=== PATIENT | male | born 1990 | race Caucasian/White ===

== ENCOUNTER 2022-08-28 13:34 | Emergency (ER) | payer MEDICAID ==
[~2022-08-28] VITALS: Ht 167.6 cm; Wt 81.8 kg
[2022-08-28 15:30] VITALS: BP 111/70
[2022-08-28] MEDS ORDERED: acetaminophen 325mg tablet PO ONE (15:50)
[2022-08-28] MEDS ORDERED: ondansetron 4mg rapidly disintigrating tab PO ONE (15:50)
[2022-08-28] MEDS ORDERED: orphenadrine citrate 60mg/2ml inj. IM ONE (15:50)
[2022-08-28] MEDS ORDERED: ketorolac trometh inj. 60 MG/2 ML VIAL IM ONE (15:50)
[2022-08-28] MEDS ORDERED: CYCL-1 PO (15:52)
[2022-08-28] MEDS ORDERED: ONDA8TAB13 PO (15:52)
[2022-08-28] MEDS ORDERED: ACET-1025 PO (15:52)
[2022-08-28] MEDS ORDERED: IBUP-1984 PO (15:52)
== END 2022-08-28 16:21 | disposition home or self-care (01) ==
LOC: ER 13:35
DX: M25.511 Pain in right shoulder (principal); Z79.899 Other long term (current) drug therapy; X50.0XXA Overexertion from strenuous movement or load, initial encounter; Y93.89 Activity, other specified; Y92.89 Other specified places as the place of occurrence of the external cause; Y99.8 Other external cause status
CPT/HCPCS: 73030; 96372; 99284; J1885; J2360